=== PATIENT | female | born 1975 | race Two or more races ===

== ENCOUNTER 2016-06-26 23:53 | Emergency (ER) | payer SELFPAY ==
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
[~2016-06-26 23:53] MED LIST: KEFLEX PO
== END 2016-06-27 05:30 | disposition home or self-care (01) ==
LOC: CED 23:53
DX: S00.93XA Contusion of unspecified part of head, initial encounter (principal); R45.6 Violent behavior; Y04.2XXA Assault by strike against or bumped into by another person, initial encounter; Y92.009 Unspecified place in unspecified non-institutional (private) residence as the place of occurrence of the external cause; I10 Essential (primary) hypertension
CPT/HCPCS: 70450; 72040; 73502; 84703; 99284